=== PATIENT | male | born 2000 | race Two or more races ===

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

== ENCOUNTER 2022-05-09 09:57 | Emergency (ER) | payer MEDICAID, OTHER ==
[~2022-05-09] VITALS: Ht 177.8 cm; Wt 68.0 kg
[2022-05-09] MEDS ORDERED: IBUPROFEN 600 MG TAB PO ONE (11:15)
[2022-05-09 11:31] VITALS: BP 100/61
[2022-05-09] MEDS ORDERED: HYDR-4902 PO (13:35)
[2022-05-09] MEDS ORDERED: IBUP600T27 PO (13:35)
== END 2022-05-09 14:36 | disposition home or self-care (01) ==
LOC: ER 09:57
DX: S02.2XXA Fracture of nasal bones, initial encounter for closed fracture (principal); S06.0XAA Concussion with loss of consciousness status unknown, initial encounter; X58.XXXA Exposure to other specified factors, initial encounter; Y93.I9 Activity, other involving external motion; Y92.89 Other specified places as the place of occurrence of the external cause; Y99.8 Other external cause status
CPT/HCPCS: 70450; 70486